=== PATIENT | female | born 1965 | race American Indian/Alaskan Native ===

== ENCOUNTER 2018-07-01 13:49 | Emergency (ER) | payer MEDICAID ==
[2018-07-01 13:54] VITALS: BMI 20.9
[2018-07-01 13:58] VITALS: RESP 18; TEMP 98; O2SAT 100
[2018-07-01 14:08] VITALS: BP 156/79; PULSE 86
--- NOTE | 2018-07-01 14:13 | C.PDOC ---
History Of Present Illness 53 y/o female,w/PMhx of anxiety, presents to the ER complaining of anxiety and palpitations. Patient has been evaluated by , protection engineer. She notes that she had extensive cardiac workup which was negative. She notes that she had vague chest discomfort which resolved [employer].Currently, patient denies having SOB, CP, and radiation. Of note, patient has been evaluated for similar symptoms multiple times in ER. Time Seen by Provider: 07/01/18 14:03 Chief Complaint (Nursing): Chest Pain History Per: Patient History/Exam Limitations: no limitations Onset/Duration Of Symptoms: Days Current Symptoms Are (Timing): Still Present Severity: Moderate Past Medical History Reviewed: Historical Data, Nursing Documentation, Vital Signs Vital Signs: Last Vital Signs Temp 98 F 07/01/18 13:54 Pulse 86 07/01/18 14:07 Resp 18 07/01/18 14:07 BP 156/79 H 07/01/18 14:07 Pulse Ox 100 07/01/18 14:07 - Medical History PMH: Asthma, COPD, HTN Other Surgeries: Hx of surgeries Family History: States: No Known Family Hx - Social History Hx Tobacco Use: No Hx Alcohol Use: No Hx Substance Use: No - Immunization History Hx Tetanus Toxoid Vaccination: No Hx Influenza Vaccination: Yes Hx Pneumococcal Vaccination: No Review Of Systems Except As Marked, All Systems Reviewed And Found Negative. Constitutional: Negative for: Fever, Chills Cardiovascular: Positive for: Palpitations. Negative for: Chest Pain Respiratory: Negative for: Shortness of Breath Psych: Positive for: Anxiety Physical Exam - Physical Exam Appears: Other (anxious) Skin: Normal Color, Warm, Dry Head: Atraumatic, Normacephalic Eye(s): bilateral: Normal Inspection Nose: Normal Oral Mucosa: Moist Neck: Supple Chest: Symmetrical, No Tenderness (digitally reproducible) Cardiovascular: Rhythm Regular Respiratory: Normal Breath Sounds, No Rales, No Rhonchi, No Wheezing Gastrointestinal/Abdominal: Normal Exam, Soft, No Tenderness, No Guarding, No Rebound Neurological/Psych: Oriented x3, Normal Speech ED Course And Treatment ECG: Interpreted By Me ECG Rhythm: Sinus Rhythm ECG Interpretation: Normal Rate From EC O2 Sat by Pulse Oximetry: 100 (RA) Pulse Ox Interpretation: Normal Medical Decision Making Medical Decision Making: vague chest discomfort, anxiety, palps normal EKG h/o anxiety no Card s/s defer w/u with informed consent. Disposition Doctor Will See Patient In The: Office Counseled Patient/Family Regarding: Studies Performed, Diagnosis - Disposition Referrals: [facility] [Outside] [facility] [Outside] [facility]Outside] [facility] [Outside] Benjamín Donahue MD [Staff Provider] - Disposition: HOME/ ROUTINE Disposition Time: 14:12 Condition: GOOD Additional Instructions: EKG normal consider outpatient follow-up for anxiety issues Instructions: Anxiety, Adult (DC) Forms: [facility] (Chinese) - Clinical Impression Clinical Impression: Anxiety about health - Scribe Statement The provider has reviewed the documentation as recorded by the Han Steele Provider Attestation: All medical record entries made by the [employer] were at my direction and personally dictated by me. I have reviewed the chart and agree that the record accurately reflects my personal performance of the history, physical exam, medical decision making, and the department course for this patient. I have also personally directed, reviewed, and agree with the discharge instructions and disposition.
--- NOTE | 2018-07-02 16:37 | CARD ---
APPROVED REPORT Date of service: 07/01/2018 EKG Measurement Heart [id number] <Conclusion> Normal sinus rhythm Minimal voltage criteria for LVH, may be normal variant Nonspecific ST and T wave abnormality Abnormal ECG
== END 2018-07-01 14:26 | disposition home or self-care (01) ==
LOC: C.ER 13:49
DX: F41.9 Anxiety disorder, unspecified (principal)